=== PATIENT | female | born 1985 ===

== ENCOUNTER 2016-05-12 03:29 | Inpatient (IN) | payer OTHER ==
[2016-05-12] VITALS (14 sets, daily range): BP systolic 122–136; BP diastolic 67–83
[2016-05-12] MEDS ORDERED: PENICILLIN G POTASSIUM IV 5 MU in D5W MINI-BAG PLUS 100 ML IV STA (03:57)
[2016-05-12] MEDS ORDERED: LACTATED RINGER'S 1000 ML IV STA (03:57)
[2016-05-12] MEDS ORDERED: LR 1,000 ML IV SCH (03:57)
[2016-05-12] MEDS ORDERED: OXYTOCIN DRIP 30 UNITS in APPROPRIATE DILUENT 1 EA IV SCH ×2 (04:00→10:40)
[2016-05-12 04:33] LABS: MEAN CORPUSCULAR HGB CONC 33.8 g/dl (32.0-36.5); MEAN CORPUSCULAR VOLUME 85.7 fl (80.0-96.0); RED CELL DISTRIBUTION WIDTH 13.7 % (11.5-14.5)
[2016-05-12] MEDS ORDERED: FENTANYL 2MCG/ML ROPIVACAINE 0.2% NACL 250 ML CADD As Ordered ONE (08:21)
[2016-05-12] MEDS ORDERED: PENICILLIN G POTASSIUM IV 2.5 MU in D5W 100 ML IV SCH (08:45)
[2016-05-12] MEDS ORDERED: OXYTOCIN 30 UNITS IN 0.9% NaCl 500ML IV BAG (J2590) As Ordered ONE (08:51)
[2016-05-12] MEDS: DOCUSATE SODIUM 100 MG CAP PO SCH ×2 (09:00→23:58)
[2016-05-12] MEDS: PRENATAL VITAMIN TAB PO SCH (09:00)
[2016-05-12] MEDS ORDERED: ONDANSETRON 4MG/2ML VIAL (J2405) IV PRN ×2 (10:15→10:45)
[2016-05-12] MEDS ORDERED: REFRIGERATOR IV KEYS XX PRN (10:15)
[2016-05-12] MEDS ORDERED: EPIDURAL/PCA KEYS XX PRN (10:15)
[2016-05-12] MEDS ORDERED: EPIDURAL COMMENT XX SCH (10:15)
[2016-05-12] MEDS ORDERED: FENTANYL/ROPIVACAINE/NACL CADD 250 ML EPIDURAL SCH (10:15)
[2016-05-12] MEDS ORDERED: diphenhydrAMINE INJ 50MG/ML VIAL (J1200) IV PRN (10:15)
[2016-05-12] MEDS ORDERED: NALOXONE INJ 0.4 MG/1 ML VIAL (J2310) IV PRN (10:15)
[2016-05-12] MEDS ORDERED: MEASLES,MUMPS,RUBELLA VACCINE INJ (MMR-II) (90707) SC SCH (10:45)
[2016-05-12] MEDS ORDERED: LIDOCAINE 1% MDV INJ 50 ML VIAL INFIL ONE (10:45)
[2016-05-12] MEDS ORDERED: PROMETHAZINE 25 MG TAB PO PRN (10:45)
[2016-05-12] MEDS ORDERED: RHOGAM 300 MCG (1500 IU) INJ (J2790) IM SCH (10:45)
[2016-05-12] MEDS ORDERED: ACETAMINOPHEN 500 MG TAB PO PRN (10:45)
[2016-05-12] MEDS ORDERED: METHYLERGONOVINE MALEATE 0.2 MG/ML VIAL (J2210) IM PRN (10:45)
[2016-05-12] MEDS ORDERED: DIBUCAINE 1% OINTMENT 30GM TOP PRN (10:45)
[2016-05-12] MEDS: IBUPROFEN 800 MG TAB PO PRN ×2 (11:01→23:58)
[2016-05-13 05:59] VITALS: BP 122/86
[2016-05-13] MEDS: PRENATAL VITAMIN TAB PO SCH (08:01)
[2016-05-13] MEDS: DOCUSATE SODIUM 100 MG CAP PO SCH ×2 (08:01→20:55)
[2016-05-13] MEDS: IBUPROFEN 800 MG TAB PO PRN (16:22)
[2016-05-13 17:54] VITALS: BP 133/83
[2016-05-14 06:03] VITALS: BP 134/88
--- NOTE | 2016-05-14 06:53 | DS.PDOC ---
Discharge Summary General Date of Admission May 12, 2016 at 03:55 Date of Discharge [id number] Discharge Summary COMPLICATIONS/CHIEF COMPLAINT: Active labor at term ADMISSION DIAGNOSES: 1. Active labor DISCHARGE DIAGNOSES: 1. HOSPITAL COURSE: Patient was admitted in labor and had an uncomplicated natural delivery. She had an uncomplicated course thereafter. DISCHARGE MEDICATIONS: Motrin, Lanolin, Tylenol, Colace, undecided on control method PHYSICAL EXAMINATION ON DISCHARGE: see prog note from this AM VITAL SIGNS: Please see below. DISCHARGE CONDITION: stable DISPOSITION: to home ACTIVITY: Nothing in the vagina for 6-8 weeks. Regular diet. No bathing for several weeks, shower only. DISCHARGE PLAN AND INSTRUCTIONS: follow up at 6 week visit Sessions Vital Signs/I&Os Vital Signs Date Time Temp Pulse Resp B/P Pulse Ox O2 Delivery O2 Flow Rate FiO2 05/14/16 06:03 96.7 72 20 134/88 Allergies Coded Allergies: No Known Drug Allergy (Verified Allergy, Unknown, 05/12/16) ENTERED BY PHARMACY PER RN INFO SESSIONS,HARRIETT Gonzalez MD May 14, 2016 06:53
--- NOTE | 2016-05-14 06:57 | IPNPDOC ---
Text Note Date of Service The patient was seen on 05/14/16. NOTE prog note on 15FEB at 0909 States feeling well, no complaints. Bonding, nursing well, VB slowing, no signif pain, eating, ambulatory. VSS Ut at U-2, firm LE no CCE a/p: Doing well, d/c home. Sessions VS,Darion, I+O VSDarion, I+O Vital Signs Date Time Temp Pulse Resp B/P Pulse Ox O2 Delivery O2 Flow Rate FiO2 05/14/16 06:03 96.7 72 20 134/88 SESSIONS,HARRIETT Gonzalez MD May 14, 2016 06:57
[2016-05-14] MEDS: PRENATAL VITAMIN TAB PO SCH (07:57)
[2016-05-14] MEDS: IBUPROFEN 800 MG TAB PO PRN (07:57)
[2016-05-14] MEDS: DOCUSATE SODIUM 100 MG CAP PO SCH (07:57)
[2016-05-14] MEDS ORDERED: IBUP-1114 PO (09:29)
[2016-05-14] MEDS ORDERED: ACET50TA PO (09:29)
[2016-05-14] MEDS ORDERED: COLA100C PO (09:29)
[2016-05-14] MEDS ORDERED: PRENTAB9 PO (09:29)
== END 2016-05-14 10:00 | disposition home or self-care (01) | DRG 775 ==
LOC: M LDO 03:29 → M LDI 03:55 → M OBS 11:48
PROVIDERS: ADMIT Student in an Organized Health Care Education/Training Program; ATTEND Obstetrics & Gynecology
PROC: 10E0XZZ Delivery of Products of Conception, External Approach (ICD-10-PCS; principal; 2016-05-12)
PROC: 0HQ9XZZ Repair Perineum Skin, External Approach (ICD-10-PCS; 2016-05-12)
DX: O42.02 Full-term premature rupture of membranes, onset of labor within 24 hours of rupture (principal); O99.824 Streptococcus B carrier state complicating childbirth; Z3A.38 38 weeks gestation of pregnancy; O70.0 First degree perineal laceration during delivery; Z37.0 Single live birth